=== PATIENT | female | born 1985 | race Caucasian/White ===

== ENCOUNTER 2018-12-31 15:52 | Emergency (ER) ==
[2018-12-31 16:03] VITALS: BP 130/77; TEMP 99.1; BMI 21.5
--- NOTE | 2018-12-31 17:37 | ED.PDOC ---
General ED Provider: Dr. EMMA FINLEY Chief Complaint: Back Pain Stated Complaint: right lower back pain,ambulatory Time Seen by Physician: 17:37 Mode of Arrival: Walk-In Information Source: Patient Exam Limitations: No limitations Referred to ED by: Other Nursing and Triage Documentation Reviewed and Agree: Yes Does patient meet sepsis criteria?: No System Inflammatory Response Syndrome: Not Applicable Sepsis Protocol: For patient's 13 years and over: Temp is 96.8 and below OR 101 and greater Pulse >90 BPM Resp >20/minute Acutely Altered Mental Status Are patient's symptoms suggestive of a new infection, such as: -Pneumonia -Skin, Soft Tissue -Endocarditis -UTI -Bone, Joint Infection -Implantable Device -Acute Abdominal Infection -Wound Infection -Meningitis -Blood Stream Catheter Infection -Unknown Trauma/Injury Complaint Exam - Truncal Trauma Complaint/Exam Onset: today Symptoms Are: Still present Onset of Pain: Reports: Hours Initial Severity: Moderate Current Severity: Mild Mechanism: Reports: Twisted Aggravating: Reports: Movement Alleviating: Reports: Rest Related History: Reports: Similar episode Related Surgical History: Reports: None Vertebral Tenderness Present: No Vertebral Deformity Present: No Trachial Deviation Present: No JVD Present: No Crepitus Present: No Diminished Breath Sounds: No Muffled Heart Sounds Present: No Paradoxical Chest Wall Movement Present: No Abdominal Guarding Present: No Referred Shoulder Pain (Kehr's Sign) Present: No Skin Findings: Present: Normal findings Differential Diagnoses: Lumbar Strain Review of Systems - Review Of Systems Constitutional: Reports: No symptoms Eyes: Reports: No symptoms Ears, Nose, Mouth, Throat: Reports: No symptoms Respiratory: Reports: No symptoms Cardiac: Reports: No symptoms GI: Reports: No symptoms : Reports: No symptoms Musculoskeletal: Reports: Back pain Skin: Reports: No symptoms Neurological: Reports: No symptoms Endocrine: Reports: No symptoms Hematologic/Lymphatic: Reports: No symptoms All Other Systems: Reviewed and Negative Past Medical History - Past Medical History Previously Healthy: Yes Endocrine: Reports: None Cardiovascular: Reports: None Respiratory: Reports: None Hematological: Reports: None Gastrointestinal: Reports: None Genitourinary: Reports: None Neuro/Psych: Reports: None Musculoskeletal: Reports: None Cancer: Reports: None Last Menstrual Period: 10 days ago - Surgical History General Surgical History: Reports: None - Family History Family History: Reports: None - Social History Smoking Status: Current every day smoker, Former smoker Smoking Cessation Counseling Time: > 3 min - 10 min Hx Substance Use: No Alcohol Screening: None Lives: With family - Immunizations Tetanus Shot up to Date: No Influenza Vaccine within 12 Months: No Pneumococcal Vaccine up to Date: No Physical Exam - Physical Exam Appearance: Well-appearing Ill-appearing: None Pain Distress: Mild Eyes: DANIEL ENT: Ears normal Neck: Supple Respiratory: Airway patent Cardiovascular: RRR Musculoskeletal: Normal strength Neurological: Sensation intact Critical Care Note - Critical Care Note Total Time (mins): 0 Course - Course Vital Signs: Temp Pulse Resp BP Pulse Ox 12/31/18 15:52 99.1 F 84 16 130/77 98 Departure - Departure Time of Disposition: 19:07 Disposition: HOME SELF-CARE Discharge Problem: Back pain Instructions: Low Back Strain (ED) Condition: Good Pt referred to PMD for follow-up: No (pcp OF CHOICE) IPMP verified?: No Allergies/Adverse Reactions: Allergies ibuprofen [From Advil] Adverse Reaction (Verified 12/31/18 15:59) Home Medications: Ambulatory Orders 1 [No Reported Medications] 12/31/18 Disposition Discussed With: Patient, Family
== END 2018-12-31 19:25 | disposition home or self-care (01) ==
LOC: ED 15:52
DX: M54.5 Low back pain (principal); F17.210 Nicotine dependence, cigarettes, uncomplicated
CPT/HCPCS: 99282